=== PATIENT | male | born 1980 | race Caucasian/White ===

== ENCOUNTER 2020-05-08 12:09 | Inpatient (IN) | payer OTHER ==
[~2020-05-08] VITALS: Ht 177.8 cm; Wt 74.5 kg
[2020-05-08] MEDS ORDERED: LEXA1TAB PO (12:29)
[2020-05-08] MEDS ORDERED: ACETAMINOPHEN 500 MG TAB PO ONE (13:00)
[2020-05-08 13:22] LABS: BASO # 0.1 10^3/uL (0.0-0.2); BASO % 0.5 % (0.0-1.0); EOS # 0.1 10^3/uL (0.0-0.5); EOS % 0.6 % (0.0-3.0); HEMATOCRIT 46.5 % (42.0-52.0); HEMOGLOBIN 15.1 g/dl (13.5-17.5); LYMPH # 2.2 10^3/uL (1.5-5.0); LYMPH % 22.4 % (24.0-44.0); MEAN CORPUSCULAR HEMOGLOBIN 30.9 pg (27.0-33.0); MEAN CORPUSCULAR HGB CONC 32.5 g/dl (32.0-36.5); MEAN CORPUSCULAR VOLUME 95.3 fl (80.0-96.0); MONO # 0.8 10^3/uL (0.0-0.8); MONO % 7.9 % (0.0-5.0); NEUTROPHILS # 6.8 10^3/uL (1.5-8.5); NEUTROPHILS % 68.1 % (36.0-66.0); PLATELET COUNT, AUTOMATED 198 10^3/uL (150-450); RED BLOOD COUNT 4.88 10^6/uL (4.30-6.10)
[2020-05-08 13:44] LABS: AMPHETAMINES LEVEL URINE NEGATIVE (NEGATIVE); BARBITURATES URINE NEGATIVE (NEGATIVE); BENZODIAZEPINES URINE NEGATIVE (NEGATIVE); CANNABINOIDS URINE POSITIVE (NEGATIVE); COCAINE METABOLITE URINE NEGATIVE (NEGATIVE); METHADONE URINE NEGATIVE (NEGATIVE); OPIATES URINE NEGATIVE (NEGATIVE); PHENCYCLIDINE URINE NEGATIVE (NEGATIVE)
[2020-05-08 13:52] LABS: ALBUMIN 3.8 GM/DL (3.2-5.2); ALT/SGPT 13 U/L (12-78); BILIRUBIN,DIRECT 0.1 MG/DL (0.0-0.2); BILIRUBIN,TOTAL 0.4 MG/DL (0.2-1.0); BLOOD UREA NITROGEN 12 MG/DL (7-18); CALCIUM LEVEL 8.9 MG/DL (8.5-10.1); CARBON DIOXIDE LEVEL 27 MEQ/L (21-32); CHLORIDE LEVEL 111 MEQ/L (98-107); CPK CREATINE PHOSPHOKINASE 48 U/L (39-308); CREATININE FOR GFR 0.92 MG/DL (0.70-1.30); ETHYL ALCOHOL (ETHANOL) < 0.003 % (0.000-0.010); FREE T4 1.13 NG/DL (0.76-1.46); GLOMERULAR FILTRATION RATE > 60.0 (>60); GLUCOSE, FASTING 86 MG/DL (70-100); LIPASE 89 U/L (73-393); MB/CK RELATIVE INDEX 2.08 (< OR =4); POTASSIUM SERUM 3.8 MEQ/L (3.5-5.1); SODIUM LEVEL 143 MEQ/L (136-145); THYROID STIMULATING HORMONE 0.561 uIU/ML (0.358-3.740); TOTAL PROTEIN 6.8 GM/DL (6.4-8.2); TROPONIN I < 0.02 NG/ML (< 0.10)
[2020-05-08] MEDS ORDERED: ISOVUE-370 76% 100ML VIAL As Ordered ONE (13:54)
--- NOTE | 2020-05-08 14:19 | REP ---
INDICATION: speech changes COMPARISON: None. TECHNIQUE: Axial noncontrast images from the skull base to the vertex with coronal reformations. This CT examination was performed using the following dose reduction techniques: Automated exposure control, adjustment of mA and/or kv according to the patient's size, and use of iterative reconstruction technique. FINDINGS: The ventricles, sulci, and cisterns are normal in position and appearance. Fernando-white differentiation is maintained. No acute intracranial hemorrhage, mass/mass effect, pathology or trauma/injury. No evidence for acute infarction. No extra-axial fluid collection. Calvarium is intact. Paranasal sinuses and mastoid air cells are clear. IMPRESSION: Normal noncontrast head CT. No evidence for acute intracranial pathology or trauma/injury. <Electronically signed by Leonard Bowen > 05/08/20 [id number]
--- NOTE | 2020-05-08 14:20 | REP ---
INDICATION: speech changes. COMPARISON: None TECHNIQUE: Axial contrast-enhanced images from the lung bases to the pubic symphysis using 100 cc Isovue 370 intravenous contrast material. Coronal and sagittal reformations obtained. This CT examination was performed using the following dose reduction techniques: Automated exposure control, adjustment of mA and/or kv according to the patient's size, and the use of iterative reconstruction technique. FINDINGS: Lung bases are clear. Liver, spleen, pancreas, gallbladder, bilateral adrenal glands and kidneys are normal. The enteric system including stomach, small, and large bowel appears normal. No evidence for obstruction or acute inflammatory process. Normal terminal ileum and appendix are identified in the right lower quadrant. Pelvis demonstrates normal bladder and age-appropriate prostate/seminal vesicles. No ascites. No free air. No intraperitoneal or retroperitoneal adenopathy. Abdominal aorta and vasculature appear normal. Musculoskeletal structures are intact and without acute osseous abnormality. IMPRESSION: No acute abdominopelvic pathology appreciated. No free-fluid. No free air. No adenopathy. No focal inflammatory stranding. <Electronically signed by Leonard Bowen > 05/08/20 [id number]
[2020-05-08] MEDS ORDERED: KETOROLAC 30 MG/ML 1ML VIAL IV ONE ×2 (15:15→19:00)
[2020-05-08] MEDS ORDERED: BUSP5TA PO (15:31)
[2020-05-08] MEDS ORDERED: ONDANSETRON 4MG/2ML VIAL IV PRN (15:45)
[2020-05-08] MEDS ORDERED: KETOROLAC 30 MG/ML 1ML VIAL IV PRN (15:45)
[2020-05-08 17:14] VITALS: BP 153/103
[2020-05-08] MEDS ORDERED: PANTOPRAZOLE 40MG VIAL (C9113 PER 1) IV SCH (18:00)
[2020-05-08] MEDS ORDERED: diphenhydrAMINE 50MG/ML VIAL (J1200) IV ONE (19:00)
[2020-05-08] MEDS ORDERED: METOCLOPRAMIDE INJ 10MG/2ML VIAL (J2765 PER 1) IV ONE (19:00)
[2020-05-08] MEDS ORDERED: busPIRone 5 MG TAB PO SCH (21:00)
--- NOTE | 2020-05-08 21:50 | REPVR ---
PROCEDURE INFORMATION: Exam: MR Head Without Contrast Exam date and time: 05/08/2020 8:50 PM Age: 39 years old Clinical indication: Speech disturbance; Unspecified; Patient HX: PT states his speech changes this past Tuesday and overall feels weak, states he always has and anterior headache TECHNIQUE: Imaging protocol: MR of the head without contrast. COMPARISON: CT Head without contrast 05/08/2020 1:54 PM FINDINGS: Brain: No intracranial hemorrhage or extra-axial fluid collection. No evidence of mass effect or midline shift. No white matter abnormalities. No restricted diffusion to suggest acute infarct. Cerebral ventricles: Ventricles, cisterns, and sulci are normal. Bones/joints: Unremarkable. Paranasal sinuses: Normal as visualized. No acute sinusitis. Mastoid air cells: No mastoid effusion. Orbits: Unremarkable. Soft tissues: Unremarkable. IMPRESSION: No acute intracranial findings. Electronically signed by: Jamie Edwards On 05/08/2020 21:50:23 PM
[2020-05-08 22:00] VITALS: BP 138/85
--- NOTE | 2020-05-09 01:37 | HPEPDOC ---
General Date of Admission May 08, 2020 at 15:39 Date of Service: May 08, 2020 Chief Complaint The patient is a 39-year-old male admitted with a reason for visit of Nausea And Vomiting. History of Present Illness 39 year old male was sent from [facility] for abnormal speech. Patient was noted to have slurred speech and some stuttering which was not normal for him so was sent to the ED for evaluation. Denis had been started on Topamax 2 weeks ago for migraine. The abnormal speech had started 4 days ago. He went to see the PMD 2 days ago when topamax was stopped and patient was s tarted on Buspirone. Patient then started having abdominal cramps and nausea and vomiting. He has been unable to keep food down. Patient also complains of headache located at the top of the head from forehead to back wards ongoing for days. Patient has been getting daily headache for > 5 years. It is dull throbbing pain about 5/10 in intensity often associated to photosensitivity and sometimes nausea and vomiting. Patient uses marijuana 3 to 4 times a week for years. Work up in he ed with C head and CT abdomen pelvis was negative for any acute abnormalities. Patient was admitted for evaluation of abnormal speech and evaluaion of nausea and vomiting. Home Medications Scheduled Buspirone HCl (Buspirone HCl) 5 Mg Tablet, 5 MG PO BID, (Reported) Escitalopram Oxalate (Lexapro) 10 Mg Tablet, 10 MG PO DAILY, (Reported) Allergies Coded Allergies: No Known Drug Allergies (Verified Allergy, Unknown, 05/08/20) Past Medical History Medical History anxiety, depression, migraine Family History Significant Family History: Hypertension (maternal grandmothe. Does not know his father, Does not know if his motehr has any medical issues) Social History * Smoker: current smoker Alcohol: occationally Drugs: marijuana A-FIB/CHADSVASC A-FIB History Current/History of A-Fib/PAF?: No Review of Systems Constitutional: Denies: Chills, Fever, Night Sweats Eyes: Denies: Pain, Vision change ENT: Reports: Head Aches; Denies: Ear Pain, Dysphagia Skin: Denies: Rash, Lesions, Breakdown Pulmonary: Denies: Dyspnea, Cough Cardiovascular: Denies: Chest Pain, Palpitations, Orthopnea, Paroxysmal Noc. Dyspnea, Lt Headedness Gastrointestinal: Reports: Nausea, Vomiting, Abdominal Pain Genitourinary: Denies: Dysuria, Frequency, Incontinence, Retention Hematologic: Denies: Bruising, Bleeding Excessively Neurological: Reports: Change in speech; Denies: Weakness, Numbness, Incoordination, Confusion, Seizures Physical Examination General Exam: Positive: Alert, Cooperative, No Acute Distress Eye Exam: Positive: PERRLA, Conjunctiva & lids normal, EOMI; Negative: Sclera icteric ENT Exam: Positive: Atraumatic, Mucous membr. moist/pink, Pharynx Normal Neck Exam: Positive: Supple; Negative: JVD, thyromegaly Chest Exam: Positive: Clear to auscultation, Normal air movement Abdomen Exam: Positive: Normal bowel sounds, Soft; Negative: Tenderness, Hepatospenomegaly Extremity Exam: Positive: Normal pulses; Negative: Clubbing, Cyanosis, Edema Skin Exam: Positive: Nl turgor and temperature; Negative: Breakdown, Lesion Vital Signs Vital Signs Date Time Temp Pulse Resp B/P (MAP) Pulse Ox O2 Delivery O2 Flow Rate FiO2 05/08/20 15:28 98.1 56 20 138/73 (94) 98 Room Air Laboratory Data Labs 24H Laboratory Tests 2 05/08/20 13:00: Urine Color YELLOW, Urine Appearance CLEAR, Urine pH 6.0, Urine Specific [place] 1.024, Urine Protein 1+H, Urine Glucose (UA) NEGATIVE, Urine Ketones 2+H, Urine Blood 1+H, Urine Nitrite NEGATIVE, Urine Bilirubin NEGATIVE, Urine Urobilinogen 4.0H, Urine Leukocyte Esterase NEGATIVE, Urine WBC (Auto) 2, Urine RBC (Auto) 4H, Urine Hyaline Casts (Auto) 3, Urine Bacteria (Auto) NEGATIVE, Urine Squamous Epithelial Cells 0, Urine Mucus (Auto) LARGE, Urine Sperm (Auto) 05/08/20 13:07: Immature Granulocyte % (Auto) 0.5, Neutrophils (%) (Auto) 68.1H, Lymphocytes (%) (Auto) 22.4L, Monocytes (%) (Auto) 7.9H, Eosinophils (%) (Auto) 0.6, Basophils (%) (Auto) 0.5, Neutrophils # (Auto) 6.8, Lymphocytes # (Auto) 2.2, Monocytes # (Auto) 0.8, Eosinophils # (Auto) 0.1, Basophils # (Auto) 0.1, Nucleated Red Bl ood Cells % (auto) 0.0, Anion Gap 5L, Glomerular Filtration Rate > 60.0, Calcium Level 8.9, Total Bilirubin 0.4, Direct Bilirubin 0.1, Aspartate Amino Transf (AST/SGOT) 6L, Alanine Aminotransferase (ALT/SGPT) 13, Alkaline Phosphatase 82, Total Creatine Kinase 48, Creatine Kinase MB 1.0, Creatine Kinase MB Relative Index 2.08, Troponin I < 0.02, Total Protein 6.8, Albumin 3.8, Albumin/Globulin Ratio 1.3, Lipase 89, Thyroid Stimulating Hormone (TSH) 0.561, Free Thyroxine 1.13, Ethyl Alcohol Level < 0.003 05/08/20 13:10: Urine Opiates Screen NEGATIVE, Urine Methadone Screen NEGATIVE, Urine Barbiturates Screen NEGATIVE, Urine Phencyclidine Screen NEGATIVE, Urine Amphetamines Screen NEGATIVE, Urine Benzodiazepines Screen NEGATIVE, Urine Cocaine Metabolite Screen NEGATIVE, Urine Cannabinoids Screen POSITIVEH 05/08/20 14:43: Lactic Acid Level 1.0 05/08/20 16:09: Coronavirus (COVID-19)(PCR) NEGATIVE CBC/BMP Laboratory Tests 05/08/20 13:07 Assessment/Plan 39 year old male was sent from [facility] for abnormal speech. Patient was noted to have slurred speech and some stuttering which was not normal for him so was sent to the ED for evaluation. Denis had been started on Topamax 2 weeks ago for migraine. The abnormal speech had started 4 days ago. He went to see the PMD 2 days ago when topamax was stopped and patient was started on Buspirone. Patient then started having abdominal cramps and nausea and vomiting. He has been unable to keep food down. Patient also complains of headache located at the top of the head from forehead to back wards ongoing for days. Patient has been getting daily headache for > 5 years. It is dull throbbing pain about 5/10 in intensity often associated to photosensitivity and sometimes nausea and vomiting. Patient uses marijuana 3 to 4 times a week for years. Work up in he ed with C head and CT abdomen pelvis was negative for any acute a bnormalities. Patient was admitted for evaluation of abnormal speech and evaluation of nausea and vomiting. Abnormal speech stuttering and slurring Could be medication side effect or neurological or atypical migraine CT head negative, MRi brain negative. This is most likely side effect of Topamax. this has already been stopped. But the patient was started on Bupar which also cause extrapyramidal effects and speech distarbabce will hold it consider consulting neurology if does not improve. Psych eval may also be need for anxiety and depression Acute migraine will give combination of metoclopromide, benadryl adn toradol. continue toradol and tylenol prn. consider neurology concult. Nausea and vomiting CT abdomen negative could be gastritis will give pantoprazole. Anxiety and depression consider psych eval for appropriate medication Plan / VTE VTE Prophylaxis Ordered?: Yes MATT VANCE MD May 08, 2020 17:04
[2020-05-09 06:00] VITALS: BP 112/72
[2020-05-09 06:24] LABS: HEMATOCRIT 43.9 % (42.0-52.0); HEMOGLOBIN 14.6 g/dl (13.5-17.5); MEAN CORPUSCULAR HEMOGLOBIN 31.7 pg (27.0-33.0); MEAN CORPUSCULAR HGB CONC 33.3 g/dl (32.0-36.5); MEAN CORPUSCULAR VOLUME 95.4 fl (80.0-96.0); PLATELET COUNT, AUTOMATED 184 10^3/uL (150-450); WHITE BLOOD COUNT 8.7 10^3/uL (4.0-10.0)
[2020-05-09 06:50] LABS: BLOOD UREA NITROGEN 14 MG/DL (7-18); CALCIUM LEVEL 8.3 MG/DL (8.5-10.1); CARBON DIOXIDE LEVEL 26 MEQ/L (21-32); CHLORIDE LEVEL 110 MEQ/L (98-107); CREATININE FOR GFR 0.83 MG/DL (0.70-1.30); GLOMERULAR FILTRATION RATE > 60.0 (>60); GLUCOSE, FASTING 75 MG/DL (70-100); POTASSIUM SERUM 3.6 MEQ/L (3.5-5.1); SODIUM LEVEL 144 MEQ/L (136-145)
--- NOTE | 2020-05-09 08:57 | DSES ---
DISCHARGE SUMMARY DATE OF ADMISSION: 05/08/2020 DATE OF DISCHARGE: / / PRINCIPAL DIAGNOSIS: Acute neurologic event secondary to withdrawal from Topamax. HISTORY: Patient goes to [facility]. He was noted to have stuttering and slurred speech after being started on Topamax 2 weeks ago for migraine prophylaxis, had been discontinued and started on BuSpar, had abdominal cramps and nausea, came to the emergency room, had a headache, he was admitted for further evaluation. HOSPITAL COURSE: Patient admitted to medical bed, given IV fluids, CT of the brain was unremarkable, MRI was negative. On the morning of discharge, he is eager to go home. His speech is back to normal, his headache is gone, he feels back to normal and wants to be home for [place]. His vital signs are stable. Neurologic exam is normal. Normal strength, reflexes, facial coordination, and speech is fluent. LABORATORY DATA: CBC is unremarkable, CMP is unremarkable. IMAGING: Summarized above. DISPOSITION: He is discharged home in improved and stable condition. He will followup with [facility] in a week. His activity is as tolerated. Diet is as tolerated. His only medication will be Lexapro 10 mg daily. His BuSpar has been discontinued and he has been off his Topamax since before admission.
[2020-05-09] MEDS ORDERED: ESCITALOPRAM OXALATE 10 MG TAB (LEXAPRO) PO SCH (09:00)
== END 2020-05-09 10:34 | disposition home or self-care (01) | DRG 58 ==
LOC: M ED 12:09 → M ED INP 15:39 → M MSPAV 17:14
PROVIDERS: ADMIT Internal Medicine Nephrology; ATTEND Family Medicine
DX: R47.81 Slurred speech (principal); G43.909 Migraine, unspecified, not intractable, without status migrainosus; F32.9 Major depressive disorder, single episode, unspecified; F41.9 Anxiety disorder, unspecified; T42.75XA Adverse effect of unspecified antiepileptic and sedative-hypnotic drugs, initial encounter; F17.200 Nicotine dependence, unspecified, uncomplicated; R11.2 Nausea with vomiting, unspecified; Z79.899 Other long term (current) drug therapy; Z20.828 Contact with and (suspected) exposure to other viral communicable diseases

== ENCOUNTER → 2020-09-06 | Outpatient (CLI) | payer OTHER ==
[~2020-09-06] MED LIST: BUPR150T5; BUSP5TA PO; HYDR50TA70 PO; LAMO25TA4 PO; LEXA1TAB PO; LEXA1TAB2; PROP60CA; QUET100T2; SUMA50TA2; TRAZ-252
== END ==
LOC: M LABSMTC 08:50
PROVIDERS: ATTEND Anesthesiology
DX: Z01.818 Encounter for other preprocedural examination (principal); Z11.52 Encounter for screening for COVID-19

== ENCOUNTER 2020-09-11 12:36 | Day surgery (SDC) | payer OTHER ==
[~2020-09-11] VITALS: Ht 177.8 cm; Wt 85.3 kg
[~2020-09-11 12:36] MED LIST changes: +NS 1,000 ML IV ONE
[2020-09-11] MEDS ORDERED: fentaNYL 100 MCG/2 ML INJECTION (J3010) As Ordered ONE (13:28)
[2020-09-11] MEDS ORDERED: LIDOCAINE 2% 100MG/5ML SDV (FOR ANES.) As Ordered ONE (13:29)
[2020-09-11] MEDS ORDERED: propofoL 200 MG/20 ML VIAL As Ordered ONE (13:29)
--- NOTE | 2020-09-11 15:19 | ROOR ---
Patient Name: Simran Khoury Procedure Date: 09/11/2020 3:06 PM Date of : 1980 Age: 40 Room: [facility] Gender: Male Note Status: Finalized Procedure: Upper GI endoscopy Indications: Epigastric abdominal pain Providers: Guilherme MCCORMICK MD Referring MD: ELMA VANCE DO Requesting Provider: Medicines: Monitored Anesthesia Care Complications: No immediate complications. Procedure: Pre-Anesthesia Assessment: - The heart rate, respiratory rate, oxygen saturations, blood pressure, adequacy of pulmonary ventilation, and response to care were monitored throughout the procedure. The Endoscope was introduced through the mouth, and advanced to the second part of duodenum. The upper GI endoscopy was accomplished without difficulty. The patient tolerated the procedure well. Findings: The esophagus was normal. Small Hiatal hernia. The stomach was otherwise normal. The examined duodenum was normal. Impression: - Normal esophagus. - Normal stomach with a small hiatal hernia. - Normal examined duodenum. - No specimens collected. Recommendation: - Observe patient's clinical course. - Continue present medications. - Reduce/avoid Cannabis Procedure Code(s): --- Professional --- 62445, Esophagogastroduodenoscopy, flexible, transoral; diagnostic, including collection of specimen(s) by brushing or washing, when performed (separate procedure) Diagnosis Code(s): --- Professional --- R10.13, Epigastric pain CPT copyright 2019 [employer]. All rights reserved. The codes documented in this report are preliminary and upon skin pass operator review may be revised to meet current compliance requirements. Guilherme Mccormick MD Guilherme MCCORMICK MD 09/11/2020 3:18:54 PM Electronically signed by Guilherme MCCORMICK MD Number of Addenda: 0 Note Initiated On: 09/11/2020 3:06 PM Estimated Blood Loss: Estimated blood loss: none.
[2020-09-11 15:35] VITALS: BP 145/85
== END 2020-09-11 15:45 | disposition home or self-care (01) ==
LOC: M OPP 12:36
PROVIDERS: ATTEND Internal Medicine Gastroenterology
DX: K44.9 Diaphragmatic hernia without obstruction or gangrene (principal); R10.13 Epigastric pain; K21.9 Gastro-esophageal reflux disease without esophagitis; Z79.899 Other long term (current) drug therapy
CPT/HCPCS: 43235; J3010

== ENCOUNTER 2022-09-18 21:04 | Emergency (ER) | payer OTHER ==
[~2022-09-18] VITALS: Ht 177.8 cm; Wt 87.4 kg
[~2022-09-18 21:04] MED LIST changes: +BUPR-71; -BUPR150T5; -NS 1,000 ML IV ONE
[2022-09-18 21:05] VITALS: BP 123/91
[2022-09-18 22:41] LABS: BASO # 0.1 10^3/uL (0.0-0.2); BASO % 0.5 % (0.0-1.0); EOS # 0.1 10^3/uL (0.0-0.5); EOS % 0.4 % (0.0-3.0); HEMATOCRIT 51.1 % (42.0-52.0); HEMOGLOBIN 17.2 g/dl (13.5-17.5); LYMPH # 3.4 10^3/uL (1.5-5.0); MEAN CORPUSCULAR HGB CONC 33.7 g/dl (32.0-36.5); MEAN CORPUSCULAR VOLUME 95.2 fl (80.0-96.0); MONO % 10.2 % (2.0-8.0); NEUTROPHILS # 11.7 10^3/uL (1.5-8.5); NEUTROPHILS % 68.5 % (36.0-66.0); PLATELET COUNT, AUTOMATED 245 10^3/uL (150-450); RED BLOOD COUNT 5.37 10^6/uL (4.30-6.10); WHITE BLOOD COUNT 17.1 10^3/uL (4.0-10.0)
[2022-09-18 22:57] LABS: MONO # 1.7 10^3/uL (0.0-0.8)
[2022-09-18 23:05] LABS: BLOOD UREA NITROGEN 11 MG/DL (9-23); CALCIUM LEVEL 9.2 MG/DL (8.5-10.1); CARBON DIOXIDE LEVEL 31 MMOL/L (20-31); CHLORIDE LEVEL 108 MMOL/L (98-107); CREATININE FOR GFR 0.94 MG/DL (0.70-1.30); GLOMERULAR FILTRATION RATE > 60.0 (>60); GLUCOSE, FASTING 96 MG/DL (60-100); POTASSIUM SERUM 4.6 MMOL/L (3.5-5.1); SODIUM LEVEL 144 MMOL/L (136-145)
[2022-09-18 23:07] LABS: THYROID STIMULATING HORMONE 0.739 uIU/ML (0.55-4.78)
== END 2022-09-19 00:07 | disposition left against medical advice (07) ==
LOC: M ED 21:04
DX: R42 Dizziness and giddiness (principal); Z53.21 Procedure and treatment not carried out due to patient leaving prior to being seen by health care provider

== ENCOUNTER → 2023-06-29 | Outpatient (REF) | payer OTHER | LOC: M SMT 12:52 | PROVIDERS: ATTEND Urology | DX: Z30.2 Encounter for sterilization (principal) ==